=== PATIENT | female | born 1980 | race Caucasian/White ===

== ENCOUNTER 2017-03-28 15:14 | Emergency (ER) | payer OTHER ==
[2017-03-28 15:22] VITALS: TEMP 97.7
[2017-03-28] MEDS ORDERED: NS 500 ML IV ONE (15:28)
[2017-03-28] MEDS ORDERED: ONDANSETRON 4 MG/2 ML VIAL IVP ONE (15:28)
--- NOTE | 2017-03-28 15:30 | EDPHY ---
H & P Time Seen by Provider: 03/28/17 15:16 HPI/ROS: CHIEF COMPLAINT: Chest pain, headache HISTORY OF PRESENT ILLNESS: The patient is a 36-year-old female with a history of fibromyalgia who presents to the emergency department the with chest pain and headache. The patient states that a.m. she developed a substernal chest pain that radiated to her right breast. It resolved. At 10:00 a.m. her symptoms return. By 11:00 a.m. she was having "rhythmic" chest pain occurring every few minutes. She had mild shortness of breath. No cough. No fevers or chills. No leg pain or swelling. Patient has had no recent travel. Patient also developed a headache around 11:00 a.m.. This is moderate to severe in diffuse in nature. Similar to previous headaches, but the patient does not have headache for some time. No focal neurologic deficit. No visual change. No neck pain. No photophobia. REVIEW OF SYSTEMS: My complete review of systems is negative except as mentioned in the HPI. Past Medical/Surgical History: Includes fibromyalgia, SVT Past surgical history: Includes hysterectomy, tonsillectomy, breast augmentation, SVT ablation Social history: The patient does not smoke. Smoking Status: Never smoked Physical Exam: Vitals noted GENERAL: Well-appearing, in no acute distress, alert. HEENT: Eyes normal to inspection, normal pharynx, no signs of dehydration. NECK: No thyromegaly, no lymphadenopathy, supple. RESPIRATORY: Clear to auscultation bilaterally, no rales, rhonchi or wheezing. CVS: Regular rate and rhythm, no rubs, murmurs, or gallops. ABDOMEN: Soft, nontender, nondistended, no organomegaly. BACK: Normal to inspection, no CVA tenderness. SKIN: Normal color, no rash, warm, dry. No pallor. EXTREMITIES: No pedal edema, no calf tenderness, no Homans sign or cords, no joint swelling. NEURO/PSYCH: Higher functions: Alert and Oriented x3. Normal speech and cognition. Normal mood and affect. Cranial nerves: Normal as tested. Cerebellar: Normal as tested. Good finger to nose, good [id number], normal gait. Peripheral exam: Normal motor exam. Normal sensation. Normal reflexes. Constitutional: Initial Vital Signs Temperature (C) 36.5 C 03/28/17 15:16 Heart Rate 71 03/28/17 15:16 Respiratory Rate 13 03/28/17 15:16 Blood Pressure 109/74 03/28/17 15:16 O2 Sat (%) 97 03/28/17 15:16 O2 Delivery Mode Nasal Cannula O2 (L/minute) 2 Allergies/Adverse Reactions: Sulfa (Sulfonamide Antibiotics) Allergy (Verified 03/28/17 15:22) Home Medications: Medication Instructions Recorded Abilify 03/28/17 Adderall 20 mg (*) 03/28/17 Ondansetron Odt [Zofran Odt 4 mg 4 mg PO Q4PRN PRN #7 tab 03/28/17 (*)] Zoloft 100mg (*) 03/28/17 oxyCODONE/APAP 5/325 [Percocet 1 - 2 tab PO Q4PRN PRN #11 tab 03/28/17 5/325 (*)] Medical Decision Making - Diagnostics EKG Interpretation: EKG shows normal sinus rhythm, normal rate, normal axis, normal intervals. There are no ST or T-wave abnormalities. EKG is normal as interpreted by me. Imaging Results: Imaging Impressions Chest X-Ray 03/28/17 15:28 Impression: Normal chest. Head CT 03/28/17 15:29 Impression: 1. No significant intracranial abnormality seen. If symptoms worsen, additional imaging may be necessary. Findings discussed with Winnie West M.D. at 16:21 hour, 03/28/2017. ED Course/Re-evaluation: In the emergency department I discussed possible etiologies with the patient. I answered all her questions. IV was placed. Laboratory studies were ordered. Patient had EKG and chest x-ray for her chest pain. Patient has a head CT for headache. Patient was given morphine 4 mg IV for her headache and Zofran 4 mg I rechecked the patient on numerous occasions. On recheck she had no focal neurologic deficits. She still complained of headache. She is given Toradol 30 mg IV. Her chest pain had resolved. No shortness of breath. I again rechecked the patient. She had no focal deficits. However, she continued to have headache. She was given fentanyl 100 mcg IV. 1845: I rechecked the patient. She stated she was feeling much better. She had no chest pain or shortness of breath. Her headache was improved but still mildly present. I discussed the limitations of imaging and her workup thus far. I discussed the possibility of subarachnoid hemorrhage in other etiologies causing her headache. I discussed the procedure of lumbar puncture. I answered all her questions. After our she decided she did not want a lumbar puncture at this time. She understands limitations. She was competent to make this decision. Patient was given warnings prior to leaving. She will return with worsening symptoms. Differential Diagnosis: My differential includes but is not limited to ACS, acute NH, pulmonary embolus , pericarditis, myocarditis, dissection, aneurysm, subarachnoid hemorrhage, subdural hematoma, epidural hematoma, CVA - Data Points Laboratory Results: Laboratory Results 03/28/17 15:00 03/28/17 15:00 03/28/17 03/28/17 03/28/17 15:00 15:00 15:00 WBC RBC Hgb Hct MCV MCH MCHC RDW Plt Count MPV Neut % (Auto) Lymph % (Auto) [place] % (Auto) Eos % (Auto) Baso % (Auto) Nucleat RBC Rel Count Absolute Neuts (auto) Absolute Lymphs (auto) Absolute Monos (auto) Absolute Eos (auto) Absolute Basos (auto) Absolute Nucleated RBC Immature Gran % Immature Gran # D-Dimer 0.28 ug/mLFEU ug/mLFEU (0.00-0.50) Sodium 143 mEq/L mEq/L (134-144) Potassium 4.0 mEq/L mEq/L (3.5-5.2) Chloride 108 mEq/L mEq/L (97-110) Carbon Dioxide 23 mEq/l mEq/l (22-31) Anion Gap 12 mEq/L mEq/L (8-16) BUN 11 mg/dL mg/dL (7-23) Creatinine 0.9 mg/dL mg/dL (0.6-1.0) Estimated GFR > 60 Glucose 74 mg/dL mg/dL (70-100) Calcium 10.1 mg/dL mg/dL (8.5-10.4) Total Bilirubin 0.5 mg/dL mg/dL (0.1-1.4) Conjugated Bilirubin 0.2 mg/dL mg/dL (0.0-0.5) Unconjugated Bilirubin 0.3 mg/dL mg/dL (0.0-1.1) AST 29 IU/L IU/L (14-46) ALT 28 IU/L IU/L (9-52) Alkaline Phosphatase 78 IU/L IU/L (38-126) Troponin I < 0.012 ng/mL ng/mL (0-0.034) Total Protein 7.6 g/dL g/dL (6.3-8.2) Albumin 4.4 g/dL g/dL (3.5-5.0) Lipase 65.0 IU/L IU/L (23-300) Beta HCG, Qual NEGATIVE 03/28/17 15:00 WBC 6.68 10^3/uL 10^3/uL (3.80-9.50) RBC 4.37 10^6/uL 10^6/uL (4.18-5.33) Hgb 13.6 g/dL g/dL (12.6-16.3) Hct 39.9 % % (38.0-47.0) MCV 91.3 fL fL (81.5-99.8) MCH 31.1 pg pg (27.9-34.1) MCHC 34.1 g/dL g/dL (32.4-36.7) RDW 13.5 % % (11.5-15.2) Plt Count 233 10^3/uL 10^3/uL (150-400) MPV 9.6 fL fL (8.7-11.7) Neut % (Auto) 62.9 % % (39.3-74.2) Lymph % (Auto) 27.1 % % (15.0-45.0) S[place]ent % (Auto) 8.7 % % (4.5-13.0) Eos % (Auto) 0.1 % L % (0.6-7.6) Baso % (Auto) 0.6 % % (0.3-1.7) Nucleat RBC Rel Count 0.0 % % (0.0-0.2) Absolute Neuts (auto) 4.20 10^3/uL 10^3/uL (1.70-6.50) Absolute Lymphs (auto) 1.81 10^3/uL 10^3/uL (1.00-3.00) Absolute Monos (auto) 0.58 10^3/uL 10^3/uL (0.30-0.80) Absolute Eos (auto) 0.01 10^3/uL L 10^3/uL (0.03-0.40) Absolute Basos (auto) 0.04 10^3/uL 10^3/uL (0.02-0.10) Absolute Nucleated RBC 0.00 10^3/uL 10^3/uL (0-0.01) Immature Gran % 0.6 % % (0.0-1.1) Immature Gran # 0.04 10^3/uL 10^3/uL (0.00-0.10) D-Dimer Sodium Potassium Chloride Carbon Dioxide Anion Gap BUN Creatinine Estimated GFR Glucose Calcium Total Bilirubin Conjugated Bilirubin Unconjugated Bilirubin AST ALT Alkaline Phosphatase Troponin I Total Protein Albumin Lipase Beta HCG, Qual Medications Given: Discontinued Medications Fentanyl (Sublimaze) 100 mcg IVP EDNOW ONE Stop: 03/28/17 17:31 Last Admin: 03/28/17 17:34 Dose: 100 mcg Sodium Chloride (Ns) 500 mls @ 0 mls/hr IV ONCE ONE; Wide Open PRN Reason: Protocol Stop: 03/28/17 15:29 Last Admin: 03/28/17 15:48 Dose: 500 mls Ketorolac Tromethamine (Toradol) 30 mg IVP EDNOW ONE Stop: 03/28/17 16:57 Last Admin: 03/28/17 16:58 Dose: 30 mg Methylprednisolone Sodium Succinate (Solu-Medrol) 125 mg IVP EDNOW ONE Stop: 03/28/17 17:31 Last Admin: 03/28/17 17:34 Dose: 125 mg Morphine Sulfate (Morphine) 4 mg IVP EDNOW ONE Stop: 03/28/17 15:29 Last Admin: 03/28/17 15:49 Dose: 4 mg Ondansetron HCl (Zofran) 4 mg IVP EDNOW ONE Stop: 03/28/17 15:29 Last Admin: 03/28/17 15:49 Dose: 4 mg Departure - Departure Disposition: Home, Routine, Self-Care Clinical Impression: Headache Qualifiers: Headache type: unspecified Headache chronicity pattern: acute headache Intractability: not intractable Qualified Code(s): R51 - Headache Chest pain Qualifiers: Chest pain type: unspecified Qualified Code(s): R07.9 - Chest pain, unspecified Condition: Good Instructions: Acute Headache (ED), Chest Pain (ED) Additional Instructions: Return with increasing chest pain, shortness of breath, worsening headache, vomiting, fever or any other concerns. Referrals: Leander Michelle MD [[facility] [place] Primary Care Provider] - 2-3 days, if not improved Prescriptions: Ondansetron Odt [Zofran Odt 4 mg (*)] 4 mg PO Q4PRN PRN #7 tab PRN Reason: For Nausea & Vomiting oxyCODONE/APAP 5/325 [Percocet 5/325 (*)] 1 - 2 tab PO Q4PRN PRN #11 tab PRN Reason: For Moderate To Severe Pain
[2017-03-28 15:35] LABS: % IMMATURE GRANULYOCYTES 0.6 % (0.0-1.1); ABSOLUTE IMMATURE GRANULOCYTES 0.04 10^3/uL (0.00-0.10); ADD DIFF? NO; ADD MORPH? NO; ADD SCAN? NO; ATYPICAL LYMPHOCYTE FLAG 40 (0-99); FRAGMENT RBC FLAG 0 (0-99); HEMATOCRIT 39.9 % (38.0-47.0); HEMOGLOBIN 13.6 g/dL (12.6-16.3); LEFT SHIFT FLG 0 (0-99); LIPEMIA HEMOLYSIS FLAG 90 (0-99); MEAN CELL HEMOGLOBIN 31.1 pg (27.9-34.1); MEAN CELL HEMOGLOBIN CONCENTR. 34.1 g/dL (32.4-36.7); MEAN CELL VOLUME 91.3 fL (81.5-99.8); MEAN PLATELET VOLUME 9.6 fL (8.7-11.7); PLATELET CLUMPS FLAG 0 (0-99); PLATELET COUNT 233 10^3/uL (150-400); RED BLOOD CELL COUNT 4.37 10^6/uL (4.18-5.33); RED CELL DISTRIBUTION WIDTH 13.5 % (11.5-15.2)
[2017-03-28 15:43] LABS: ALANINE AMINOTRANSFERASE 28 IU/L (9-52); ALBUMIN 4.4 g/dL (3.5-5.0); ALKALINE PHOSPHATASE 78 IU/L (38-126); ANION GAP 12 mEq/L (8-16); ASPARTATE AMINOTRANSFERASE 29 IU/L (14-46); BILIRUBIN,TOTAL 0.5 mg/dL (0.1-1.4); BILIRUBIN-CONJUGATED 0.2 mg/dL (0.0-0.5); BILIRUBIN-UNCONJUGATED 0.3 mg/dL (0.0-1.1); CALCIUM 10.1 mg/dL (8.5-10.4); CARBON DIOXIDE 23 mEq/l (22-31); CHLORIDE 108 mEq/L (97-110); CREATININE 0.9 mg/dL (0.6-1.0); GLOMERULAR FILTRATION RATE > 60; GLUCOSE 74 mg/dL (70-100); SODIUM 143 mEq/L (134-144); TOTAL PROTEIN 7.6 g/dL (6.3-8.2)
[2017-03-28 15:53] LABS: TROPONIN I < 0.012 ng/mL (0-0.034)
--- NOTE | 2017-03-28 15:59 | CPEKG ---
Heart Rate: 62 RR Interval: 968 P-R Interval: 136 QRSD Interval: 80 QT Interval: 412 QTC Interval: 419 P Grantham: 72 QRS [place]ham: 65 T Wave Grantham: 46 EKG Severity - NORMAL ECG - EKG Impression: SINUS RHYTHM Electronically Signed By: Winnie West 28-Mar-2017 20:58:24
[2017-03-28] MEDS ORDERED: KETOROLAC 30 MG/1 ML SDV IVP ONE (16:56)
[2017-03-28] MEDS ORDERED: fentaNYL 100 MCG/2 ML INJ IVP ONE (17:30)
[2017-03-28] MEDS ORDERED: methylPREDNISolone SOD SUCC 125 MG/2 ML VIAL IVP ONE (17:30)
[2017-03-28 17:42] VITALS: O2SAT 98
[2017-03-28] MEDS ORDERED: ONDANSETRON 4MG PREPACK#2 BTL TAKEHOME ONE (18:51)
[2017-03-28] MEDS ORDERED: OXYCODONE/APAP 5/325MG PREPACK#4 BTL TAKEHOME ONE (18:51)
[2017-03-28 19:10] VITALS: BP 103/68; PULSE 78; RESP 16
== END 2017-03-28 19:06 | disposition home or self-care (01) ==
LOC: EDUNIT#
DX: R07.9 Chest pain, unspecified (principal); R51 Headache; E86.9 Volume depletion, unspecified
CPT/HCPCS: 96374; J1885; J2405; J3010

== ENCOUNTER 2017-06-17 22:10 | Emergency (ER) | payer OTHER ==
[2017-06-17 22:15] VITALS: TEMP 97.7
--- NOTE | 2017-06-17 22:20 | EDPHY ---
H & P Stated Complaint: right jaw infection- worsening-seen earlier today HPI/ROS: HPI CHIEF COMPLAINT: Right jaw line pain. Possible infection HISTORY OF PRESENT ILLNESS: This patient very pleasant 36-year-old female she is otherwise healthy she does take depression medications she presents emergency room with pain over the parotid region on the right side her face. No swelling. She states she has been developing pain there for the past week. She was seen at Urgent Care today and thought to be having a parotid gland infection. Patient placed on Augmentin. She returns emergency room tonight as she states that it is having increasing pain around the right parotid gland region. She denies any high fever. Denies trouble swallowing. She states the pain does radiate into her right submandibular lymphadenopathy region. No significant swelling. No dental pain. No throat pain. No drooling. No change in phonation. Past Medical History: Denies significant medical history except for depression Past Surgical History: Denies significant surgical history Social History: Denies daily use of drugs alcohol tobacco products. Family History: Noncontributory. ROS REVIEW OF SYSTEMS: A comprehensive 10 point review of systems is otherwise negative aside from elements mentioned in the history of present illness. Exam Constitutional appears well nontoxic, triage nursing summary reviewed, vital signs reviewed, awake/alert. Eyes normal conjunctivae and sclera, EOMI, PERRLA. HENT oropharynx no signs of Delano's, no signs of gingival issue, no signs of dental issue, posterior pharynx normal, right-sided the patient do not appreciate any warmth, redness, swelling. She is tender over the parotid gland. Additionally she is tender over the periauricular space, normal inspection, atraumatic, moist mucus membranes, no epistaxis, neck supple/ no meningismus, no raccoon eyes. Respiratory clear to auscultation bilaterally, normal breath sounds, no respiratory distress, no wheezing. Cardiovascular rate normal, regular rhythm, no murmur, no edema, distal pulses normal. Gastrointestinal soft, non-tender, no rebound, no guarding, normal bowel sounds, no distension, no pulsatile mass. Genitourinary no CVA tenderness. Musculoskeletal no midline vertebral tenderness, full range of motion, no calf swelling, no tenderness of extremities, no meningismus, good pulses, neurovascularly intact. Skin pink, warm, & dry, no rash, skin atraumatic. Neurologic awake, alert and oriented x 3, AAOx3, moves all 4 extremities equally, motor intact, sensory intact, CN II-XII intact, normal cerebellar, normal vision, normal speech. Psychiatric normal mood/affect. Heme/Lymph/Immune no lymphadenopathy. Differential Diagnosis: Includes but is not limited to in a particular order parotid gland infection, lymphadenopathy, deep space facial infection. Medical Decision Making: Plan for this patient Thornton p.o. here, CT face with IV contrast rule out infection. Blood work. Re-evaluation: 2327: Blood work reviewed unremarkable. CT face pending with IV contrast. 2342: CT maxillofacial with IV contrast shows no acute inflammatory process or infection. Blood work reviewed is normal. Will provide pain medicine Thornton. Recommend continue her Augmentin. Will follow up with ENT referral given. She does understand return emergency room if develops worsening symptoms questions or concerns. This includes worsening pain, fever, vomiting. Facial swelling. Source: Patient - Personal History LMP (Females 10-55): Hysterectomy Current Tetanus Diphtheria and Acellular Pertussis (TDAP): Yes - Medical/Surgical History Hx Asthma: No Hx Chronic Respiratory Disease: No Hx Diabetes: No Hx Cardiac Disease: No Hx Renal Disease: No Hx Cirrhosis: No Hx Alcoholism: No Hx HIV/AIDS: No Hx Splenectomy or Spleen Trauma: No Other PMH: fibromyalgia, breast aument 2010, Ablation 2014 (SVT) - Social History Smoking Status: Never smoked Constitutional: Initial Vital Signs Temperature (C) 36.5 C 06/17/17 22:12 Heart Rate 89 06/17/17 22:12 Respiratory Rate 16 06/17/17 22:12 Blood Pressure 113/68 06/17/17 22:12 O2 Sat (%) 95 06/17/17 22:12 O2 Delivery Mode Room Air Allergies/Adverse Reactions: Sulfa (Sulfonamide Antibiotics) Allergy (Verified 06/17/17 22:12) Home Medications: Medication Instructions Recorded Abilify 03/28/17 Adderall 20 mg (*) 03/28/17 Ondansetron Odt [Zofran Odt 4 mg 4 mg PO Q4PRN PRN #7 tab 03/28/17 (*)] Zoloft 100mg (*) 03/28/17 oxyCODONE/APAP 5/325 [Percocet 1 - 2 tab PO Q4PRN PRN #11 tab 03/28/17 (*)] Hydrocodone/APAP [Thornton 1 - 2 tab PO Q4H PRN #10 tab 06/17/17] Medical Decision Making - Data Points Laboratory Results: Laboratory Results 06/17/17 22:35 06/17/17 22:35 06/17/17 06/17/17 22:35 22:35 WBC 6.37 10^3/uL 10^3/uL (3.80-9.50) RBC 4.08 10^6/uL L 10^6/uL (4.18-5.33) Hgb 13.0 g/dL g/dL (12.6-16.3) Hct 37.9 % L % (38.0-47.0) MCV 92.9 fL fL (81.5-99.8) MCH 31.9 pg pg (27.9-34.1) MCHC 34.3 g/dL g/dL (32.4-36.7) RDW 13.2 % % (11.5-15.2) Plt Count 219 10^3/uL 10^3/uL (150-400) MPV 9.1 fL fL (8.7-11.7) Neut % (Auto) 54.9 % % (39.3-74.2) Lymph % (Auto) 35.2 % % (15.0-45.0) [place] % (Auto) 8.8 % % (4.5-13.0) Eos % (Auto) 0.3 % L % (0.6-7.6) Baso % (Auto) 0.6 % % (0.3-1.7) Nucleat RBC Rel Count 0.0 % % (0.0-0.2) Absolute Neuts (auto) 3.50 10^3/uL 10^3/uL (1.70-6.50) Absolute Lymphs (auto) 2.24 10^3/uL 10^3/uL (1.00-3.00) Absolute Monos (auto) 0.56 10^3/uL 10^3/uL (0.30-0.80) Absolute Eos (auto) 0.02 10^3/uL L 10^3/uL (0.03-0.40) Absolute Basos (auto) 0.04 10^3/uL 10^3/uL (0.02-0.10) Absolute Nucleated RBC 0.00 10^3/uL 10^3/uL (0-0.01) Immature Gran % 0.2 % % (0.0-1.1) Immature Gran # 0.01 10^3/uL 10^3/uL (0.00-0.10) Sodium 142 mEq/L mEq/L (134-144) Potassium 3.3 mEq/L L mEq/L (3.5-5.2) Chloride 102 mEq/L mEq/L (97-110) Carbon Dioxide 28 mEq/l mEq/l (22-31) Anion Gap 12 mEq/L mEq/L (8-16) BUN 13 mg/dL mg/dL (7-23) Creatinine 0.9 mg/dL mg/dL (0.6-1.0) Estimated GFR > 60 Glucose 76 mg/dL mg/dL (70-100) Calcium 9.5 mg/dL mg/dL (8.5-10.4) Medications Given: Discontinued Medications Hydrocodone Bitart/Acetaminophen (Thornton 5/325) 1 tab PO EDNOW ONE Stop: 06/17/17 22:26 Last Admin: 06/17/17 22:40 Dose: 1 tab Ketorolac Tromethamine (Toradol) 30 mg IVP EDNOW ONE Stop: 06/17/17 23:13 Last Admin: 06/17/17 23:12 Dose: 30 mg Departure - Departure Disposition: Home, Routine, Self-Care Clinical Impression: Facial pain Condition: Good Instructions: Atypical Facial Pain (ED) Referrals: Patient,NotPresent [Primary Care Provider] - As per Instructions Remy Kaminski MD [Medical Doctor] - As per Instructions Prescriptions: Hydrocodone/APAP 5/325 [Thornton 5/325] 1 - 2 tab PO Q4H PRN #10 tab PRN Reason: Pain, Moderate
[2017-06-17] MEDS ORDERED: HYDROCODONE/APAP 5/325 TAB PO ONE (22:25)
[2017-06-17] MEDS ORDERED: IOPAMIDOL (ISOVUE-300) 100 ML BTL ONE ×2 (22:29→23:20)
[2017-06-17 22:42] LABS: % IMMATURE GRANULYOCYTES 0.2 % (0.0-1.1); ABSOLUTE IMMATURE GRANULOCYTES 0.01 10^3/uL (0.00-0.10); ADD DIFF? NO; ADD MORPH? NO; ADD SCAN? NO; ATYPICAL LYMPHOCYTE FLAG 30 (0-99); FRAGMENT RBC FLAG 0 (0-99); HEMATOCRIT 37.9 % (38.0-47.0); LEFT SHIFT FLG 0 (0-99); LIPEMIA HEMOLYSIS FLAG 90 (0-99); MEAN CELL HEMOGLOBIN 31.9 pg (27.9-34.1); MEAN CELL HEMOGLOBIN CONCENTR. 34.3 g/dL (32.4-36.7); MEAN CELL VOLUME 92.9 fL (81.5-99.8); MEAN PLATELET VOLUME 9.1 fL (8.7-11.7); PLATELET CLUMPS FLAG 0 (0-99); PLATELET COUNT 219 10^3/uL (150-400); RED BLOOD CELL COUNT 4.08 10^6/uL (4.18-5.33); RED CELL DISTRIBUTION WIDTH 13.2 % (11.5-15.2)
[2017-06-17 22:57] LABS: ANION GAP 12 mEq/L (8-16); CALCIUM 9.5 mg/dL (8.5-10.4); CARBON DIOXIDE 28 mEq/l (22-31); CHLORIDE 102 mEq/L (97-110); CREATININE 0.9 mg/dL (0.6-1.0); GLOMERULAR FILTRATION RATE > 60; GLUCOSE 76 mg/dL (70-100); POTASSIUM 3.3 mEq/L (3.5-5.2); SODIUM 142 mEq/L (134-144)
[2017-06-17] MEDS ORDERED: KETOROLAC 30 MG/1 ML SDV ONE (23:09)
[2017-06-17] MEDS ORDERED: KETOROLAC 30 MG/1 ML SDV IVP ONE (23:12)
[2017-06-18 00:11] VITALS: BP 100/60; PULSE 58; RESP 20; O2SAT 97
== END 2017-06-18 00:10 | disposition home or self-care (01) ==
DX: R51 Headache (principal)
CPT/HCPCS: 96374; J1885; Q9967